=== PATIENT | male | born 1970 | race Caucasian/White ===

== ENCOUNTER 2016-11-19 09:30 | Emergency (ER) | payer OTHER ==
[2016-11-19 09:34] VITALS: BP 135/86; PULSE 70; TEMP 97.8; BMI 31.8
[2016-11-19] MEDS ORDERED: IBUPROFEN 600 MG TABLET (FP) PO ONE ×2 (10:01→10:09)
--- NOTE | 2016-11-19 10:05 | PDOC ---
History of Present Illness - General Chief Complaint: Chronic pain Stated Complaint: KNEE PAIN Time Seen by Provider: 11/19/16 09:45 History Source: Patient Exam Limitations: No Limitations - History of Present Illness Initial Comments: 11/19/16 09:59 46-year-old presents to the ED with complaints of left knee pain for the past 2 months. Patient states symptoms have progressively worsened over time aggravated with ambulation. Patient denies swelling, sensory changes distally, recent injury, skin discoloration, or radiation of pain. Patient does state had a meniscal repair approximately 9 years ago and is currently seeking an orthopedic referral through his [employer] insurance. Timing/Duration: getting worse Severity: mild Associated Symptoms: reports: denies symptoms Past History - Travel Traveled outside of the country in the last 30 days: No Close contact w/someone who was outside of country & ill: No - Past Medical History Allergies/Adverse Reactions: Allergies Allergy/AdvReac Type Severity Reaction Status Date / Time apple Allergy Swelling Verified 11/19/16 09:31 No Known Drug Allergies Allergy Verified 11/19/16 09:31 Home Medications: Ambulatory Orders Hydrocodone/Ibuprofen [Vicoprofen 200-7.5 mg Tab] 1 each PO Q6H #15 tablet 04/24 Other medical history: DENIES. - Psycho/Social/Smoking Cessation Hx Anxiety: No Suicidal Ideation: No Smoking History: Never smoked Hx Alcohol Use: Yes Drug/Substance Use Hx: No Substance Use Type: Alcohol Patient Lives Alone: Yes Lives with/in: lives alone Review of Systems - Review of Systems Able to Perform ROS?: No Constitutional: No: Symptoms Reported Musculoskeletal: Yes: Joint Pain (left ). No: Muscle Pain Integumentary: No: Symptoms Reported Neurological: No: Symptoms reported Endocrine: No: Symptoms Reported Hematologic/Lymphatic: No: Symptoms Reported *Physical Exam - Vital Signs Last Vital Signs Temp Pulse Resp BP Pulse Ox 97.8 F 70 18 135/86 98 11/19/16 09:30 11/19/16 09:30 11/19/16 09:30 11/19/16 09:30 11/19/16 09:30 - Physical Exam General Appearance: Yes: Nourished, Appropriately Dressed. No: Apparent Distress Extremity: positive: Normal Capillary Refill, Normal Inspection, Normal Range of Motion, Tender (lateral aspect of left knee over the proximal aspect of LCL) Neurologic: positive: Normal Mood/Affect, Motor Strength 5/5 (ambulatory) Medical Decision Making - Medical Decision Making 11/19/16 10:07 Patient with worsening left knee pain over the LCL. Patient requesting orthopedic referral. Patient will be given a referral to Dr. borges and given Motrin and discharged. *DC/Admit/Observation/Transfer Diagnosis at time of Disposition: Left knee pain Qualifiers: Chronicity: chronic Qualified Code(s): M25.562 - Pain in left knee; G89.29 - Other chronic pain - Discharge Dispostion Disposition: HOME Condition at time of disposition: Good - Referrals Referrals: Artur Borges MD [Staff Physician] - - Patient Instructions Printed Discharge Instructions: DI for Knee Pain Additional Instructions: Please follow up with Dr. borges as discussed. Please apply ice to the affected area and take Motrin as needed for discomfort.
== END 2016-11-19 10:15 | disposition home or self-care (01) ==
LOC: JERFT 09:30
DX: M25.562 Pain in left knee (principal); G89.29 Other chronic pain
CPT/HCPCS: 99281-25

== ENCOUNTER 2019-01-27 12:59 | Emergency (ER) | payer OTHER ==
[2019-01-27] MEDS ORDERED: SODIUM CHLORIDE 1,000 ML IV STA (13:23)
[2019-01-27] MEDS ORDERED: ACETAMINOPHEN 1000 MG/100 ML VIAL (NON FORMULARY) IVPB ONE (13:23)
--- NOTE | 2019-01-27 13:23 | PDOC ---
Rapid Medical Evaluation Medical Evaluation: Allergies Allergy/AdvReac Type Severity Reaction Status Date / Time apple Allergy Swelling Verified 11/19/16 09:31 No Known Drug Allergies Allergy Verified 11/19/16 09:31 I have performed a brief in-person evaluation of this patient. The patient presents with a chief complaint of: c/o posterior BAR/neck pain from yesterday; denies trauma; +pain with moving neck; denies fever, vomiting; was sent by PCP for r/o meningitis Pertinent physical exam findings: In NAD, no c-spine tenderness, able to move neck but slight pain with movement of neck I have ordered the following: Labs The patient will proceed to the ED for further evaluation. 01/27/19 13:19
[2019-01-27 13:24] VITALS: BP 131/87; PULSE 59; TEMP 98.2; BMI 33.9
[2019-01-27] MEDS ORDERED: ACETAMINOPHEN INJECTION 100 ML IVPB ONE (13:41)
[2019-01-27 14:10] LABS: BASO % 1.1 % (0-2.0); EOS % 3.9 % (0-4.5); HEMATOCRIT 44.4 % (35.4-49); HEMOGLOBIN 15.3 GM/dL (11.7-16.9); LYMPH % 30.3 % (8-40); MCH 32.1 pg (25.7-33.7); MCHC 34.5 g/dl (32.0-35.9); MEAN CELL VOLUME 93.1 fl (80-96); MEAN PLT VOLUME 7.7 fl (7.5-11.1); MONO % 11.4 % (3.8-10.2); NEUT % 53.3 % (42.8-82.8); PLATELET COUNT 222 K/MM3 (134-434); RBC 4.77 M/mm3 (4.00-5.60); RDW 13.7 % (11.9-15.9); WHITE BLOOD COUNT 5.2 K/mm3 (4.0-10.0)
[2019-01-27 14:37] LABS: ALBUMIN 3.9 g/dl (3.4-5.0); BILIRUBIN,TOTAL 0.6 mg/dL (0.2-1); BLOOD UREA NITROGEN 20.8 mg/dL (7-18); CALCIUM 9.4 mg/dL (8.5-10.1); POTASSIUM 4.4 mmol/L (3.5-5.1); TOT PROT 7.3 g/dl (6.4-8.2)
[2019-01-27] MEDS ORDERED: LIDOCAINE 5% TOPICAL PATCH TP ONE (17:07)
[2019-01-27] MEDS ORDERED: CYCLOBENZAPRINE HCL 10 MG TABLET (FP) PO ONE (17:07)
--- NOTE | 2019-01-27 17:07 | PDOC ---
History of Present Illness - General Chief Complaint: Headache Stated Complaint: NECK/HEAD PAIN Time Seen by Provider: 01/27/19 13:19 History Source: Patient Exam Limitations: No Limitations - History of Present Illness Initial Comments: 01/27/19 17:55 48 yo male no sig pmh present to the ED with bilateral neck pain and stiffness that started yesterday. Pt went to primary doctor, saw [facility] [employer] HELPER who sent pt for possible meningitis. Pt denies recent trauma, BAR, changes in speech/vision/ consciousness, confusion, F/C/N/V, weakness or changes in sensation to 1 side of his body. Pt states the pain in his neck is bilateral, described as a sharp stab without radiation made worse with side ROM of the neck. Pt did not take any medication or use any modalities. Denies recent illness, recent travel, all immunizations are up to date, sore throat, ear pain, CP, SOB, abdominal pain, back pain, changes in bowel or bladder habits Pt states after smoking cigars he intermittently coughs and admits to smoking yesterday with a mild cough. This cough is described as non productive and no different than past smoking related coughs Past History - Past Medical History Allergies/Adverse Reactions: Allergies Allergy/AdvReac Type Severity Reaction Status Date / Time apple Allergy Swelling Verified 01/27/19 13:58 No Known Drug Allergies Allergy Verified 01/27/19 13:58 Home Medications: Ambulatory Orders Acetaminophen [Pain Reliever] 1,000 mg PO Q6H PRN 01/27/19 Cyclobenzaprine HCl [Flexeril -] 5 mg PO DAILY PRN #5 tablet 01/27/19 Lidocaine 5% Patch [Lidoderm Patch -] 1 patch TP DAILY #3 patch 01/27/19 Naproxen 500 mg PO BID PRN #14 tablet 01/27/19 COPD: No - Immunization History Immunization Up to Date: Yes - Suicide/Smoking/Psychosocial Hx Smoking History: Never smoked Information on smoking cessation initiated: No Hx Alcohol Use: No Drug/Substance Use Hx: No Substance Use Type: Alcohol Review of Systems - Review of Systems Constitutional: No: Chills, Fever HEENTM: No: Blurred Vision, Double Vision, Ear Pain, Ear Discharge, Throat Pain Respiratory: Yes: Cough (intermittent). No: Shortness of Breath, Productive cough Cardiac (ROS): No: Chest Pain, Edema ABD/GI: No: Constipated, Diarrhea, Nausea, Vomiting : No: Burning, Dysuria, Frequency, Flank Pain, Hematuria Musculoskeletal: Yes: Neck Pain. No: Back Pain Integumentary: No: Lesions, Pallor, Rash Neurological: No: Headache, Numbness, Paresthesia, Tingling, Unsteady Gait, Ataxia, Dizziness *Physical Exam - Vital Signs Last Vital Signs Temp Pulse Resp BP Pulse Ox 98.2 F 59 L 16 131/87 97 01/27/19 13:21 01/27/19 13:21 01/27/19 13:21 01/27/19 13:21 01/27/19 13:21 - Physical Exam General Appearance: Yes: Nourished, Appropriately Dressed. No: Apparent Distress HEENT: positive: EOMI, MELISSA, Normal Voice, Pharynx Normal, Hearing Grossly Normal. negative: Photophobia, Pharyngeal Erythema, Tonsillar Exudate, Tonsillar Erythema, Sinus Tenderness, TM Erythema Neck: positive: Supple. negative: Carotid bruit Respiratory/Chest: positive: Lungs Clear, Normal Breath Sounds. negative: Respiratory Distress, Accessory Muscle Use, Rapid RR, Crackles, Rales, Rhonchi, Stridor, Wheezing Cardiovascular: positive: Regular Rhythm, Regular Rate, S1, S2. negative: Edema , JVD, Murmur Vascular Pulses: Dorsalis-Pedis (R): 4+, Doralis-Pedis (L): 4+ Gastrointestinal/Abdominal: positive: Flat, Soft. 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 negative: Facial Droop, Numbness, Sensory Deficit, Finger to Nose (normal), Confused, Disoriented ED Treatment Course - LABORATORY CBC & Chemistry Diagram: 01/27/19 13:55 01/27/19 13:55 - ADDITIONAL ORDERS Additional order review: Laboratory Results 01/27/19 13:55 Sodium 138 Potassium 4.4 Chloride 108 H Carbon Dioxide 24 Anion Gap 7 L BUN 20.8 H Creatinine 1.0 Est GFR (CKD-EPI)AfAm 101.26 Est GFR (CKD-EPI)NonAf 87.37 Random Glucose 88 Calcium 9.4 Total Bilirubin 0.6 AST 32 ALT 37 Alkaline Phosphatase 80 Total Protein 7.3 Albumin 3.9 01/27/19 13:55 RBC 4.77 MCV 93.1 MCHC 34.5 RDW 13.7 MPV 7.7 Neutrophils % 53.3 D Lymphocytes % 30.3 D Monocytes % 11.4 H D Eosinophils % 3.9 D Basophils % 1.1 - RADIOLOGY Radiology Studies Ordered: Category Date Time Status CERVICAL SPINE CT W/O CONTR [CT] Stat CT Scan 01/27/19 15:[address] WITHOUT CONTRAST [CT] Stat CT Scan 01/27/19 15:58 Ordered - Medications Given in the ED: ED Medications Discontinued Medications Generic Name Dose Route Start Last Admin Trade Name Freq PRN Reason Stop Dose Admin Acetaminophen 1,000 mg 01/27/19 13:23 01/27/19 14:24 Ofirmev Injection - IVPB 01/27/19 13:24 Not Given ONCE ONE Sodium Chloride 1,000 mls @ 1,000 mls/hr 01/27/19 13:23 01/27/19 14:00 Normal Saline - IV 01/27/19 14:22 1,000 mls/hr ASDIR STA Administration Medical Decision Making - Medical Decision Making 01/27/19 18:55 48 yo male no sig pmh present to the ED with bilateral neck pain and stiffness that started yesterday. Pt went to primary doctor, saw [facility] [employer] HELPER who sent pt for possible meningitis. Pt denies recent trauma, BAR, changes in speech/vision/ consciousness, confusion, F/C/N/V, weakness or changes in sensation to 1 side of his body. Pt states the pain in his neck is bilateral, described as a sharp stab without radiation made worse with side ROM of the neck. Pt did not take any medication or use any modalities. Denies recent illness, recent travel, all immunizations are up to date, sore throat, ear pain, CP, SOB, abdominal pain, back pain, changes in bowel or bladder habits Pt states after smoking cigars he intermittently coughs and admits to smoking yesterday with a mild cough. This cough is described as non productive and no different than past smoking related coughs vitals WNL Labs sent No elevated WBC, labs WNL neg Kernig and brudzin Neuro exam normal, no fever Pt has reproducible tenderness to the lateral cervical spine. Given lidoderm patch, fluids, tylenol and muscle relaxant Head neg for bleed or concerning findings C spine demonstrates moderate central canal stenosis C5-C6 pt reports improvement in symptoms after medication Will send lidoderm patch, naproxen and cyclobenz to his pharmacy and give neurosurg f/u for central canal stensis along with strict return precautions for possible meningitis *DC/Admit/Observation/Transfer Diagnosis at time of Disposition: Neck pain - Discharge Dispostion Disposition: HOME Condition at time of disposition: Stable Decision to Admit order: No - Prescriptions Prescriptions: Cyclobenzaprine HCl [Flexeril -] 5 mg PO DAILY PRN #5 tablet PRN Reason: Muscle Spasms Lidocaine 5% Patch [Lidoderm Patch -] 1 patch TP DAILY #3 patch Naproxen 500 mg PO BID PRN #14 tablet PRN Reason: Pain - Referrals Referrals: Last De La Garza MD, FAANS [Staff Physician] - - Patient Instructions Printed Discharge Instructions: DI for Neck Pain, Lidocaine Transdermal Patch Additional Instructions: 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 Do not take motrin, advil, aleve, ibuprofen or other NSAID medications if you are taking naproxen 2) Flexeril - muscle relaxer - can make you sleepy so do not drive or operate machinery if you are taking this medication 3) Lidoderm patch You can also take tylenol if you are having persistent pain Follow up with your primary care physician within 1 week Return to the emergency department if you have any new, worsening, or concerning symptoms - Post Discharge Activity
[2019-01-27] MEDS ORDERED: CYCLOBENZAPRINE HCL 10 MG TABLET (FP) ONE (17:22)
[2019-01-27] MEDS ORDERED: LIDOCAINE 5% TOPICAL PATCH ONE (17:22)
--- NOTE | 2019-01-27 18:44 | PDOC ---
Attending Attestation - Resident Resident Name: Vidal Cai - ED Attending Attestation I have performed the following: I have examined & evaluated the patient, The case was reviewed & discussed with the resident, I agree w/resident's findings & plan, Exceptions are as noted - HPI HPI: Agree with resident HPI - Physicial Exam PE: 01/27/19 18:44 GENERAL: Awake, alert, and fully oriented, in no acute distress. Comfortable, non toxic EYES: PERRLA, EOMI, sclera anicteric, conjunctiva clear ENT: Auricles normal inspection, hearing grossly normal, nares patent, oropharynx clear without exudates. Moist mucosa NECK: + L cervical paraspinal and L SCM ttp, pain worse when he looks to the right or brings his L ear to his L shoulder, neck is supple, no lymphadenopathy , JVD, or masses. Negative Kernig's or brudsinski's signs. LUNGS: Breath sounds equal, clear to auscultation bilaterally. No wheezes, and no crackles HEART: Regular rate and rhythm, normal S1 and S2, no murmurs, rubs or gallops ABDOMEN: Soft, nontender, normoactive bowel sounds. No guarding, no rebound. No masses EXTREMITIES: Normal range of motion, no edema. No clubbing or cyanosis. No cords , erythema, or tenderness BACK: No midline spinal tenderness in cervical/thoracic/lumbar region NEUROLOGICAL: Normal speech, cranial nerves intact, negative pronator drift, 5/ 5 strength in all 4 extremities, normal sensation to light touch in all 4 extremities, normal cerebellar exam, normal gait, normal reflexes and tone SKIN: Warm, Dry, normal turgor, no rashes or lesions noted. - Medical Decision Making 01/27/19 18:44 48yo M with no sig PMH presents to the ED with L sided neck pain for 2 days Woke up with neck pain yesterday Pain is not present at rest, is positional, worse when he looks to the right or brings his L ear to his shoulder No midline ttp No neuro deficits, negative kernigs brudzinski's. Neck is supple No fevers, chills, headache, visual sxs. Pt is feeling very well otherwise Low likelihood meningitis, most likely MSK No WBC count, labs wnl. CTH/CT c-spine with no acute findings Pt feeling better with tylenol, flexerill, lidoderm patch He is clinically stable for DC with neuro f/u in case pain does not improve I discussed the physical exam findings, ancillary test results and final diagnoses with the patient. I answered all of the patient's questions. The patient was satisfied with the care received and felt comfortable with the discharge plan and treatment plan. The patient will call their primary care physician within 24 hours to arrange follow-up and will return to the Emergency Department with any new, persistent or worsening symptoms.
[2019-01-27] MEDS ORDERED: LIDOCAINE PATCH REMOVAL MC SCH (22:00)
== END 2019-01-27 19:16 | disposition home or self-care (01) ==
LOC: JER 12:59
PROC: 3E0337Z Introduction of Electrolytic and Water Balance Substance into Peripheral Vein, Percutaneous Approach (ICD-10-PCS; principal; 2019-01-27)
DX: M48.02 Spinal stenosis, cervical region (principal); F17.290 Nicotine dependence, other tobacco product, uncomplicated
CPT/HCPCS: 36415; 70450-TC; 72125-TC; 80053; 85025; 99282-25; J7030

== ENCOUNTER 2021-05-09 21:49 | Emergency (ER) | payer OTHER ==
[2021-05-09 22:00] VITALS: BP 159/87; PULSE 87; TEMP 98.2; BMI 36.2
[2021-05-09 22:58] LABS: INR 1.09 (0.83-1.09); PROTHROMBIN TIME (PATIENT) 12.2 SEC (9.7-13.0)
[2021-05-09 23:01] LABS: ACTIVATED PTT 28.3 SECONDS (25.2-36.5)
[2021-05-09 23:14] LABS: BASO % 0.8 % (0-2.0); EOS % 2.4 % (0-4.5); HEMATOCRIT 42.9 % (35.4-49); HEMOGLOBIN 14.3 GM/dL (11.7-16.9); LYMPH % 19.9 % (8-40); MCH 30.9 pg (25.7-33.7); MCHC 33.5 g/dl (32.0-35.9); MEAN CELL VOLUME 92.5 fl (80-96); MEAN PLT VOLUME 7.5 fl (7.5-11.1); MONO % 9.5 % (3.8-10.2); NEUT % 67.4 % (42.8-82.8); PLATELET COUNT 230 10^3/uL (134-434); RBC 4.64 M/mm3 (4.00-5.60); RDW 13.7 % (11.9-15.9); WHITE BLOOD COUNT 7.5 K/mm3 (4.0-10.0)
[2021-05-09 23:17] LABS: CALCIUM 8.4 mg/dL (8.5-10.1); CHLORIDE 106 mmol/L (98-107); SODIUM 137 mmol/L (136-145)
[2021-05-09 23:18] LABS: ALBUMIN 3.4 g/dl (3.4-5.0); ANION GAP 10 MMOL/L (8-16); BLOOD UREA NITROGEN 13.5 mg/dL (7-18); CO2 21 mmol/L (21-32); GLUCOSE,RANDOM 81 mg/dL (74-106)
[2021-05-09 23:22] LABS: BILIRUBIN,TOTAL 0.4 mg/dL (0.2-1); CREATININE 0.9 mg/dL (0.55-1.3); SGOT/AST 37 U/L (15-37); SGPT/ALT 40 U/L (13-61)
[2021-05-09 23:24] LABS: TOT PROT 6.8 g/dl (6.4-8.2)
[2021-05-09 23:25] LABS: ALK PHOS 87 U/L (45-117)
== END 2021-05-10 01:23 | disposition home or self-care (01) ==
LOC: JER 21:49
DX: G45.9 Transient cerebral ischemic attack, unspecified (principal); R20.2 Paresthesia of skin
CPT/HCPCS: 36415; 70450-TC; 80053; 82962; 84484; 85025; 85610; 85730; 86850; 86900; 86901; 93005; 93010; 99285-25

== ENCOUNTER 2025-03-01 06:18 | Day surgery (SDC) | payer BC ==
[2025-03-01 07:39] VITALS: BMI 33.6
[2025-03-01 08:49] VITALS: TEMP 97.2
[2025-03-01 09:03] VITALS: RESP 18
[2025-03-01 09:16] VITALS: PULSE 58
[2025-03-01 09:33] VITALS: BP 124/75
== END 2025-03-01 09:33 | disposition home or self-care (01) ==
LOC: JASU-ENDO 06:18
PROVIDERS: ATTEND Internal Medicine Gastroenterology
PROC: 0DBL8ZX Excision of Transverse Colon, Via Natural or Artificial Opening Endoscopic, Diagnostic (ICD-10-PCS; principal; 2025-03-01 08:00)
DX: Z12.11 Encounter for screening for malignant neoplasm of colon (principal); D12.3 Benign neoplasm of transverse colon; K64.8 Other hemorrhoids; K57.30 Diverticulosis of large intestine without perforation or abscess without bleeding
CPT/HCPCS: 88305-TC